=== PATIENT | female | born 1940 | race Caucasian/White ===

== ENCOUNTER 2017-04-29 09:51 | Emergency (ER) | payer MEDICARE, BC ==
[~2017-04-29] VITALS: Ht 162.6 cm; Wt 65.0 kg
[~2017-04-29 09:51] MED LIST: ADLT ASA LOW81 MG PO; ADULT ASA81 MG OR; ALLOPURINOL300 MG PO; ASPIRIN LOW DOS81 M2 PO; AVELOX400 MG OR; AVELOX400 MG PO; BRILINTA90 MG PO; DUONEB IN; HYCOTUSS EXP1 ML OR; LIPITOR20 M1 PO; LOPRESSOR 550 MG/TAB PO; LOSARTAN POT50 MG PO; METFORMIN1000 MG PO; METFORMIN500 M1 OR; METFORMIN500 MG PO; MULTI VIT PO; NOVOLOG SC; OS-CAL 500+D PO; OS-CAL 500500 M1 PO; OS-CAL 500500 MG OR; PLETAL50 MG PO; PREDNISONE50 MG PO; VENTOLIN HFA IN; VITAMIN C500 M1 PO; ZETIA10 MG OR; ZETIA10 MG PO; ZPAK PO; [UNRECOGNIZED DRUG - OTHER] PO
[2017-04-29 10:36] LABS: HEMATOCRIT 35.8 % (37.0-47.0); IMMATURE GRANULOCYTES 0.3 % (0.0-1.0); MEAN CELL VOLUME 75.8 fL CALC (80.0-100.0); MEAN CORPUSCULAR HGB 23.3 pG CALC (26.0-32.0); MEAN CORPUSCULAR HGB CONC 30.7 g/L CALC (32.0-36.0); NEUT# 7.9 thou/uL (2.00-7.15); RED BLOOD COUNT 4.72 mill/uL (4.20-5.60); RED CELL DISTRI WIDTH 16.9 % (11.5-15.5)
[2017-04-29 11:10] LABS: ALBUMIN 4.4 g/dL (3.2-5.0); ALKALINE PHOSPHATASE 116 u/l (38-126); ANION GAP 14 (6-22 (CALC)); BILIRUBIN, TOTAL 0.4 mg/dL (0.0-1.4); BUN 14 mg/dL (8-23); BUN/CREATININE RATIO 23 (12-20 (CALC)); CALCIUM 9.4 mg/dL (8.4-10.2); CARBON DIOXIDE 32 mmol/l (22-30); CHLORIDE 95 mmol/l (95-108); CREATININE 0.6 mg/dL (0.5-1.0); GFR > 60 ML/MIN (>=60 (CALC)); GFR FOR AFR.AMER. > 60 ML/MIN (>=60 (CALC)); GLUCOSE 219 mg/dL (82-115); POTASSIUM 4.7 mmol/l (3.5-5.1); SGOT/AST 50 u/l (9-36); SGPT/ALT 28 u/l (11-66); SODIUM 136 mmol/l (137-146); TOTAL PROTEIN 7.4 g/dL (6.3-8.2)
[2017-04-29 11:22] LABS: MYOGLOBIN 53 ng/mL (0 - 62)
[2017-04-29] MEDS ORDERED: ZPAK PO (12:01)
[2017-04-29] MEDS ORDERED: LORTAB 1010 MG PO (12:01)
[2017-04-29 12:41] VITALS: BP 207/86
== END 2017-04-29 12:41 | disposition left against medical advice (07) ==
LOC: ED 09:51
PROVIDERS: Emergency Medicine
PROC: 0HQDXZZ Repair Right Lower Arm Skin, External Approach (ICD-10-PCS; principal; 2017-04-29)
DX: J44.1 Chronic obstructive pulmonary disease with (acute) exacerbation (principal); S51.811A Laceration without foreign body of right forearm, initial encounter; S20.219A Contusion of unspecified front wall of thorax, initial encounter; E11.9 Type 2 diabetes mellitus without complications; F17.210 Nicotine dependence, cigarettes, uncomplicated; W07.XXXA Fall from chair, initial encounter; Y92.009 Unspecified place in unspecified non-institutional (private) residence as the place of occurrence of the external cause; Z95.5 Presence of coronary angioplasty implant and graft; Z91.19 Patient's noncompliance with other medical treatment and regimen; R06.02 Shortness of breath

== ENCOUNTER 2017-05-02 11:08 | Emergency (ER) | payer MEDICARE, BC ==
[~2017-05-02] VITALS: Ht 162.6 cm; Wt 56.0 kg
[~2017-05-02 11:08] MED LIST changes: +LORTAB 1010 MG PO
[2017-05-02 12:33] LABS: ALBUMIN 4.3 g/dL (3.2-5.0); ALKALINE PHOSPHATASE 122 u/l (38-126); AMYLASE 76 u/l (30-110); ANION GAP 16 (6-22 (CALC)); BILIRUBIN, TOTAL 0.5 mg/dL (0.0-1.4); BUN 12 mg/dL (8-23); BUN/CREATININE RATIO 19 (12-20 (CALC)); CALCIUM 9.9 mg/dL (8.4-10.2); CARBON DIOXIDE 34 mmol/l (22-30); CHLORIDE 91 mmol/l (95-108); CREATININE 0.6 mg/dL (0.5-1.0); GFR > 60 ML/MIN (>=60 (CALC)); GFR FOR AFR.AMER. > 60 ML/MIN (>=60 (CALC)); GLUCOSE 234 mg/dL (82-115); LIPASE 120 u/l (23-300); POTASSIUM 4.4 mmol/l (3.5-5.1); SGOT/AST 33 u/l (9-36); SGPT/ALT 43 u/l (11-66); SODIUM 137 mmol/l (137-146); TOTAL PROTEIN 7.4 g/dL (6.3-8.2)
[2017-05-02 12:43] LABS: HEMATOCRIT 38.3 % (37.0-47.0); HEMOGLOBIN 11.8 g/dl (12.0-16.0); IMMATURE GRANULOCYTES 0.6 % (0.0-1.0); MEAN CORPUSCULAR HGB 23.4 pG CALC (26.0-32.0); MEAN CORPUSCULAR HGB CONC 30.8 g/L CALC (32.0-36.0); NEUT# 8.08 thou/uL (2.00-7.15); RED BLOOD COUNT 5.04 mill/uL (4.20-5.60)
[2017-05-02 12:46] LABS: MYOGLOBIN 47 ng/mL (0 - 62)
[2017-05-02 15:07] LABS: URINE BILIRUBIN - DIPSTICK NEGATIVE (NEGATIVE); URINE BLOOD DIPSTICK NEGATIVE (NEGATIVE); URINE COLOR YELLOW; URINE GLUCOSE - DIPSTICK 100 mg/dL (NEGATIVE); URINE KETONE TRACE mg/dL (NEGATIVE); URINE LEUK ESTERASE NEGATIVE (NEGATIVE); URINE NITRITE - DIPSTICK NEGATIVE (Negative); URINE PH 5.5 (4.5-8.0); URINE PROTEIN - DIPSTICK TRACE mg/dL (NEG-TRACE); URINE SPECIFIC GRAVITY >=1.030; URINE UROBILINOGEN - DIPSTICK 0.2 E.U./dL (0.2)
[2017-05-02 15:10] LABS: URINE CLARITY CLEAR
[2017-05-02] MEDS ORDERED: MUPIROCIN2 % EX (16:53)
[2017-05-02] MEDS ORDERED: BACTRIM DS1 TAB PO (16:53)
[2017-05-02 16:56] VITALS: BP 172/80
== END 2017-05-02 17:11 | disposition home or self-care (01) ==
LOC: ED 11:08
PROVIDERS: Emergency Medicine
DX: S20.219A Contusion of unspecified front wall of thorax, initial encounter (principal); S81.801A Unspecified open wound, right lower leg, initial encounter; R07.9 Chest pain, unspecified; R06.02 Shortness of breath; F17.210 Nicotine dependence, cigarettes, uncomplicated; W01.118A Fall on same level from slipping, tripping and stumbling with subsequent striking against other sharp object, initial encounter; Y93.89 Activity, other specified; Y92.009 Unspecified place in unspecified non-institutional (private) residence as the place of occurrence of the external cause

== ENCOUNTER 2017-12-13 11:08 | Emergency (ER) | payer MEDICARE, BC ==
[~2017-12-13] VITALS: Ht 162.6 cm; Wt 59.1 kg
[~2017-12-13 11:08] MED LIST changes: +BACTRIM DS1 TAB PO; +MUPIROCIN2 % EX
[2017-12-13] MEDS ORDERED: METRONIDAZOL500 MG PO (11:22)
[2017-12-13] MEDS ORDERED: ZOFRAN4 M1 PO (11:22)
[2017-12-13] MEDS ORDERED: BACTRIM DS1 TAB PO (11:22)
[2017-12-13 11:37] VITALS: BP 176/70
== END 2017-12-13 11:58 | disposition home or self-care (01) ==
LOC: ED 11:08
DX: S61.231A Puncture wound without foreign body of left index finger without damage to nail, initial encounter (principal); S61.234A Puncture wound without foreign body of right ring finger without damage to nail, initial encounter; S91.331A Puncture wound without foreign body, right foot, initial encounter; W55.01XA Bitten by cat, initial encounter; Y92.009 Unspecified place in unspecified non-institutional (private) residence as the place of occurrence of the external cause

== ENCOUNTER 2018-09-19 11:25 | Emergency (ER) | payer MEDICARE, BC ==
[~2018-09-19] VITALS: Ht 162.6 cm; Wt 59.0 kg
[~2018-09-19 11:25] MED LIST changes: +METRONIDAZOL500 MG PO; +ZOFRAN4 M1 PO
[2018-09-19 12:14] LABS: HEMATOCRIT 38.2 % (37.0-47.0); HEMOGLOBIN 12.7 g/dl (12.0-16.0); IMMATURE GRANULOCYTES 0.5 % (0.0-5.0); MEAN CORPUSCULAR HGB 28.7 pG CALC (26.0-32.0); MEAN CORPUSCULAR HGB CONC 33.2 g/L CALC (32.0-36.0); NEUT# 6.71 thou/uL (2.00-7.15); RED BLOOD COUNT 4.43 mill/uL (4.20-5.60); RED CELL DISTRI WIDTH 14.4 % (11.5-15.5)
[2018-09-19 12:18] LABS: BUN 14 mg/dL (8-23); BUN/CREATININE RATIO 24 (12-20 (CALC)); CARBON DIOXIDE 31 mmol/l (22-30); CHLORIDE 92 mmol/l (95-108); CREATININE 0.6 mg/dL (0.5-1.0); GFR > 60 ML/MIN (>=60 (CALC)); GFR FOR AFR.AMER. > 60 ML/MIN (>=60 (CALC)); POTASSIUM 4.5 mmol/l (3.5-5.1)
[2018-09-19 12:21] LABS: ANION GAP 12 (6-22 (CALC)); SODIUM 130 mmol/l (137-146)
[2018-09-19 12:22] LABS: MEAN CELL VOLUME 86.2 fL CALC (80.0-100.0)
[2018-09-19] MEDS ORDERED: SIMVASTATIN10 MG PO (12:40)
[2018-09-19] MEDS ORDERED: FUROSEMIDE20 MG PO (12:40)
[2018-09-19] MEDS ORDERED: POT CHLORIDE10 ME1 PO (12:47)
[2018-09-19] MEDS ORDERED: MOTRIN400 MG PO (13:58)
[2018-09-19 14:25] VITALS: BP 152/61
== END 2018-09-19 14:25 | disposition home or self-care (01) ==
LOC: ED 11:25
PROVIDERS: Family Medicine
DX: S20.212A Contusion of left front wall of thorax, initial encounter (principal); S81.812A Laceration without foreign body, left lower leg, initial encounter; S81.811A Laceration without foreign body, right lower leg, initial encounter; E11.9 Type 2 diabetes mellitus without complications; J44.9 Chronic obstructive pulmonary disease, unspecified; F17.200 Nicotine dependence, unspecified, uncomplicated; W19.XXXA Unspecified fall, initial encounter; Z99.81 Dependence on supplemental oxygen; R06.02 Shortness of breath